=== PATIENT | female | born 1990 | race Caucasian/White ===

== ENCOUNTER 2019-05-07 19:16 | Observation (INO) | payer OTHER ==
[~2019-05-07] VITALS: Ht 160 cm; Wt 64.0 kg
[2019-05-07] MEDS ORDERED: PREN-176 MT (20:34)
[2019-05-07] MEDS ORDERED: DOXY1TAB6 PO (20:34)
== END 2019-05-07 22:25 | disposition home or self-care (01) ==
LOC: ER 19:16 → EDSTATUS 20:02 → 8 EST LDRP 20:05
PROVIDERS: ADMIT Obstetrics & Gynecology; ATTEND Obstetrics & Gynecology
DX: O9A.212 Injury, poisoning and certain other consequences of external causes complicating pregnancy, second trimester (principal); O26.892 Other specified pregnancy related conditions, second trimester; R10.30 Lower abdominal pain, unspecified; Z3A.20 20 weeks gestation of pregnancy; V89.2XXA Person injured in unspecified motor-vehicle accident, traffic, initial encounter; Y93.9 Activity, unspecified; Y92.9 Unspecified place or not applicable; Y99.9 Unspecified external cause status
CPT/HCPCS: 76805; 99281; G0378